=== PATIENT | female | born 1955 | race Caucasian/White ===

== ENCOUNTER 2020-01-01 19:46 | Emergency (ER) | payer BC ==
[2020-01-01] MEDS ORDERED: Diphtheria,Pertussis(Acell),Tetanus Vaccine 0.5 ML SDV IM ONE (20:12)
[2020-01-01] MEDS ORDERED: Lidocaine 1% with EPINEPHrine 1:100,000 20 ML MDV ONE (20:35)
[2020-01-01] MEDS ORDERED: Lidocaine 1% with EPINEPHrine 1:100,000 20 ML MDV INJECT ONE (20:35)
[2020-01-01 20:52] VITALS: BP 118/82; PULSE 97
--- NOTE | 2020-01-01 20:54 | EDM.PDOC ---
ED HPI GENERAL MEDICAL PROBLEM - General Chief Complaint: General Stated Complaint: LACERATION ARM Time Seen by Provider: 01/01/20 20:05 Source of Information: Reports: Patient History Limitations: Reports: No Limitations - History of Present Illness INITIAL COMMENTS - FREE TEXT/NARRATIVE: 64 YO WF PRESENTS TO ER WITH LACERATION TO LEFT FOREARM AFTER A TRIP AND FALL OUTSIDE EARLIER TODAY. PT REPORTS SHE CUT HER ARM ON SOME TREE DEBRIS. PT DENIES ANY OTHER INJURY. PT UNSURE IF SHE NEEDED STITCHES BUT WANTED AN UPDATED TETANUS. PT DENIES DECREASED SENSATION OR MOTOR DYSFUNCTION. PT MOVING FINGERS, WRIST AND ELBOW WITHOUT DISCOMFORT. Onset: Today Duration: Hour(s): (2) Location: Reports: Upper Extremity, Left Quality: Reports: Ache Severity: Mild Improves with: Reports: Rest Worsens with: Reports: None Context: Reports: Activity Associated Symptoms: Reports: No Other Symptoms - Related Data Allergies Allergy/AdvReac Type Severity Reaction Status Date / Time No Known Drug Allergies Allergy Cannot Verified 01/01/20 20:13 Remember Home Meds: Home Meds Citalopram [Citalopram HBr] 40 mg PO DAILY 01/01/20 [History] ED ROS GENERAL - Review of Systems Review Of Systems: See Below Constitutional: Reports: No Symptoms HEENT: Reports: No Symptoms Respiratory: Reports: No Symptoms Cardiovascular: Reports: No Symptoms GI/Abdominal: Reports: No Symptoms : Reports: No Symptoms Musculoskeletal: Reports: No Symptoms Skin: Reports: Wound (6CM LACERATION TO LEFT FOREARM) Neurological: Reports: No Symptoms Psychiatric: Reports: No Symptoms Hematologic/Lymphatic: Reports: No Symptoms Immunologic: Reports: No Symptoms ED EXAM, GENERAL - Physical Exam Exam: See Below Exam Limited By: No Limitations General Appearance: Alert, WD/WN, No Apparent Distress Head: Atraumatic, Normocephalic Neck: Normal Inspection, Supple, Non-Tender, Full Range of Motion Respiratory/Chest: No Respiratory Distress, Lungs Clear, Normal Breath Sounds, No Accessory Muscle Use, Chest Non-Tender Cardiovascular: Normal Peripheral Pulses, Regular Rate, Rhythm, No Edema, No Gallop, No JVD, No Murmur, No Rub GI/Abdominal: Normal Bowel Sounds, Soft, Non-Tender, No Organomegaly, No Distention, No Abnormal Bruit, No Mass Back Exam: Normal Inspection, Full Range of Motion, NT Extremities: Normal Range of Motion, No Pedal Edema, Normal Capillary Refill Neurological: Alert, Oriented, CN II-XII Intact, Normal Cognition, Normal Gait, No Motor/Sensory Deficits Psychiatric: Normal Affect, Normal Mood Skin Exam: Warm, Dry, Normal Color, No Rash, Wound/Incision (6CM LACERATION TO LEFT FOREARM) ED GENERAL MEDICAL PROCEDURES - Laceration/Wound Repair Left Anterior Distal Arm Lac/wound length in cm: 6 Appearance: Superficial Distal NVT: Neuro & Vascular Intact Anesthetic Type: Local Local Anesthesia - Lidocaine (Xylocaine): 1% with EPI Local Anesthetic Volume: 5cc Skin Prep: Chlorhexidine (Hibiciens), Saline Saline irrigation (cc's): 20 Exploration/Debridement/Repair: Wound Explored, In a Bloodless Field Closed with: Sutures Suture Size: 4-0 # of Sutures: 4 Drain Placement: No Sterile Dressing Applied: Provider Tetanus Status Addressed: Yes Complications: No Course - Orders/Labs/Meds Orders: Active Orders 24 hr Category Date Time Status Vaccines to be Administered [RC] PER UNIT ROUTINE Care 01/01/20 20:13 Active Meds: Medications Discontinued Medications Generic Name Dose Route Start Last Admin Trade Name Freq PRN Reason Stop Dose Admin Diphtheria/Tetanus/Acell Pertussis 0.5 ml 01/01/20 20:12 01/01/20 20:21 Adacel IM 01/01/20 20:13 0.5 ml .ONCE ONE Administration Lidocaine/Epinephrine Confirm 01/01/20 20:35 Xylocaine 1% With Epinephrine 1:100,000 Administered 01/01/20 20:36 Dose 20 ml .ROUTE .STK-MED ONE Departure - Departure Time of Disposition: 20:54 Disposition: Home, Self-Care 01 Condition: Good Clinical Impression: Laceration of forearm Qualifiers: Encounter type: initial encounter Laterality: left Qualified Code(s): S51.812A - Laceration without foreign body of left forearm, initial encounter - Discharge Information Instructions: Laceration Care, Adult Referrals: Codi Horton PA-C [Primary Care Provider] - Additional Instructions: 1. DISCHARGE HOME 2. WOUND CARE INSTRUCTIONS GIVEN 3. SUTURE REMOVAL 10-14 DAYS 4. FOLLOW UP WITH PCP FOR FURTHER EVALUATION AND TREATMENT NEEDED 5. RETURN TO ER FOR WORSENING SYMPTOMS - My Orders Last 24 Hours: My Active Orders 01/01/20 20:13 Vaccines to be Administered [RC] PER UNIT ROUTINE - Assessment/Plan Last 24 Hours: My Active Orders 01/01/20 20:13 Vaccines to be Administered [RC] PER UNIT ROUTINE Assessment:: 1. 6CM LACERATION TO LEFT FOREARM Plan: 1. DISCHARGE HOME 2. WOUND CARE INSTRUCTIONS GIVEN 3. SUTURE REMOVAL 10-14 DAYS 4. FOLLOW UP WITH PCP FOR FURTHER EVALUATION AND TREATMENT NEEDED 5. RETURN TO ER FOR WORSENING SYMPTOMS
== END 2020-01-01 21:01 | disposition home or self-care (01) ==
LOC: KA.ED 19:46
DX: S51.812A Laceration without foreign body of left forearm, initial encounter (principal); Z23 Encounter for immunization; Z79.899 Other long term (current) drug therapy; W01.0XXA Fall on same level from slipping, tripping and stumbling without subsequent striking against object, initial encounter
CPT/HCPCS: 12002; 90471; 90715; 99282-25; 99283

== ENCOUNTER 2020-02-11 07:18 | Emergency (ER) | payer BC ==
--- NOTE | 2020-02-11 07:33 | EDM.PDOC ---
ED HPI GENERAL MEDICAL PROBLEM - General Chief Complaint: Upper Extremity Injury/Pain Stated Complaint: broken wrist Time Seen by Provider: 02/11/20 07:32 - History of Present Illness INITIAL COMMENTS - FREE TEXT/NARRATIVE: Jennifer, 64-year-old female, at roughly 615 hours slipped on icy surface falling down onto her left outstretched upper extremity. Experienced immediate pain with mild deformity to the left wrist. Noted bleeding. Denies any other injury, did not strike her head. Past history fracture of the left wrist that did not require surgical intervention. Tetanus status was updated in the past weeks Onset: Today, Sudden Duration: Minutes: Location: Reports: Upper Extremity, Left Quality: Reports: Same as Previous Episode, Sharp Severity: Moderate Improves with: Reports: None Worsens with: Reports: Movement Context: Reports: Activity, Trauma Associated Symptoms: Reports: No Other Symptoms Left Wrist Pain Score (Numeric/FACES): 8 - Related Data Allergies Allergy/AdvReac Type Severity Reaction Status Date / Time No Known Drug Allergies Allergy Cannot Verified 02/11/20 07:39 Remember Home Meds: Home Meds Citalopram [Citalopram HBr] 40 mg PO DAILY 01/01/20 [History] Fenofibrate Nanocrystallized [Tricor] 145 mg PO DAILY 02/11/20 [History] Hydrocodone/Acetaminophen [Hydrocodone-Acetamin 5-325 mg] 1 each PO Q4HR PRN 3 Days #10 tablet 02/11/20 [Rx] Past Medical History HEENT History: Reports: Impaired Vision Cardiovascular History: Reports: High Cholesterol 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: Musculoskeletal History: Reports: Other (See Below) - Past Surgical History Oncologic Surgical History: Reports: Mastectomy Other Oncologic Surgeries/Procedures: left mastectomy Social & Family History - Family History Family Medical History: Noncontributory - Caffeine Use Caffeine Use: Reports: Coffee Review of Systems - Review of Systems Review Of Systems: See Below Constitutional: Reports: No Symptoms Eyes: Reports: No Symptoms Ears: Reports: No Symptoms Nose: Reports: No Symptoms Mouth/Throat: Reports: No Symptoms Respiratory: Reports: No Symptoms Cardiovascular: Reports: No Symptoms GI/Abdominal: Reports: No Symptoms Genitourinary: Reports: No Symptoms Musculoskeletal: Reports: Arm Pain, Hand Pain Skin: Reports: Wound Neurological: Reports: No Symptoms Psychiatric: Reports: No Symptoms ED EXAM, GENERAL - Physical Exam Exam: See Below Free Text/Narrative:: Alert, oriented, in moderate distress. She is self splinting left wrist. HEENT is negative discharge or deformity. Glasses in place with no noted damage PERRLA no icterus no injection Neck is soft supple no lymphadenopathy. No limitation to motion. Thorax is clear no wheezes no crackles. Cardiac is regular S1-S2. Focused examination to the left upper extremity shows deformity with minimal swelling at the wrist. There is a open, puncture appearance to the medial aspect of the wrist making me question an open fracture. I do not appreciate any abrasion to the palm. CMS is intact limited motion secondary of discomfort as well as malalignment of the radius. Capillary refill 2 seconds. In review of the x-ray the open area does not completely correlate with fracture segments. General Appearance: Alert, WD/WN, Moderate Distress ED TRAUMA EXTREMITY PROCEDURES - Splinting Left Upper Extremity Pre-Procedure NV Status: Normal Post-Procedure NV Status: Normal Splint Material: Fiberglass Splint Design: Gutter, Posterior Applied & Form Fitted By: Provider Provider Post-Splint Application NV Check: NV Status Normal, Good Position Complications: No Course - Vital Signs Last Recorded V/S: Last Vital Signs Temp 35.5 C L 02/11/20 07:25 Pulse 76 02/11/20 08:27 Resp 20 02/11/20 08:27 BP 145/92 H 02/11/20 08:27 Pulse Ox 100 02/11/20 08:27 - Orders/Labs/Meds Meds: Medications Discontinued Medications Generic Name Dose Route Start Last Admin Trade Name Keshav PRN Reason Stop Dose Admin Cefazolin Sodium 1 gm 02/11/20 09:00 02/11/20 09:12 Ancef IM 02/11/20 09:01 1 gm ONETIME ONE Administration Neomycin/Polymyxin/Bacitracin Confirm 02/11/20 08:08 02/11/20 08:21 Triple Antibiotic Oint Administered 02/11/20 08:09 Not Given Dose 1 each .ROUTE .STK-MED ONE Neomycin/Polymyxin/Bacitracin 0.9 gm 02/11/20 08:16 02/11/20 08:23 Triple Antibiotic Oint TOP 02/11/20 08:17 1 applic ONETIME ONE Administration - Radiology Interpretation Free Text/Narrative:: 2 view of the wrist shows a comminuted displaced impacted left radial fracture. Over read pending - Re-Assessments/Exams Free Text/Narrative Re-Assessment/Exam: 02/11/20 08:46 Orthopedic consult attempted at 0800 hrs. with images pushed to [facility] in [place]. Departure - Departure Time of Disposition: 09:17 Disposition: Home, Self-Care 01 Condition: Good Clinical Impression: Radius distal fracture, Fall - Discharge Information *PRESCRIPTION DRUG MONITORING PROGRAM REVIEWED*: Yes *COPY OF PRESCRIPTION DRUG MONITORING REPORT IN PATIENT CHRISTINA: Yes Prescriptions: Hydrocodone/Acetaminophen [Hydrocodone-Acetamin 5-325 mg] 1 each PO Q4HR PRN 3 Days #10 tablet PRN Reason: Pain (Moderate 4-6) Instructions: Cast or Splint Care, Adult, [id number] Referrals: Codi Horton PA-C [Primary Care Provider] - Forms: ED Department Discharge Additional Instructions: Will be discharged home today with a prescription for hydrocodone to be picked up at [facility]. You may take 1 every 4 hours or 2 every 6 as needed for your pain. No driving or operating equipment when taking this medication. Dr. Diamond, orthopedic surgeon office will be contacting you this afternoon to arrange surgical scheduling for tomorrow. Continue your home medicines today as directed and follow surgical scheduling advice for medication intake tomorrow. Keep the splint extremity in the sling as much as possible. Elevate and ice to help control swelling. Contact your clinic or return to the emergency department if intervention is needed prior to the surgical scheduling. 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 - Problem List & Annotations (1) Wrist pain, left SNOMED Code(s): 86373349 Code(s): M25.532 - PAIN IN LEFT WRIST Status: Acute Current Visit: Yes (2) Fall SNOMED Code(s): 4181694, 211027647 Code(s): W19.XXXA - UNSPECIFIED FALL, INITIAL ENCOUNTER Status: Acute Current Visit: Yes Qualifiers: Encounter type: initial encounter Qualified Code(s): W19.XXXA - Unspecified fall, initial encounter (3) Radius distal fracture SNOMED Code(s): 604649094 Code(s): S52.509A - UNSP FRACTURE OF THE LOWER END OF UNSP RADIUS, INIT Status: Acute Current Visit: Yes Qualifiers: Encounter type: initial encounter Open fracture type: open type I or II Laterality: left - Problem List Review Problem List Initiated/Reviewed/Updated: Yes - Assessment/Plan Plan: Will be discharged home today with a prescription for hydrocodone to be picked up at [facility]. You may take 1 every 4 hours or 2 every 6 as needed for your pain. No driving or operating equipment when taking this medication. Dr. Diamond, orthopedic surgeon office will be contacting you this afternoon to arrange surgical scheduling for tomorrow. Continue your home medicines today as directed and follow surgical scheduling advice for medication intake tomorrow. Keep the splint extremity in the sling as much as possible. Elevate and ice to help control swelling. Contact your clinic or return to the emergency department if intervention is needed prior to the surgical scheduling.
--- NOTE | 2020-02-11 08:20 | CR ---
[id number] RAD/RAD Wrist Left 2V EXAM: 2 VIEWS RIGHT WRIST. INDICATION: FALL, PAIN WITH DEFORMITY. COMPARISON: None. DISCUSSION: Acute impacted and displaced fracture involving the distal right radius. Additionally there is mild angulation. The fracture extends into the radiocarpal joint. No other fractures are identified. There is associated soft tissue edema. IMPRESSION: 1. Acute fracture involving the distal right radius as above. Orville Wei DO 02/11/20 0819 Thank you for allowing us to participate in the care of your patient.
[2020-02-11] MEDS: Bacitracin/Neomycin/Polymyxin B Oint 0.9 GM U/D Packet ONE (08:21)
[2020-02-11] MEDS: Bacitracin/Neomycin/Polymyxin B Oint 28.4 GM Tube TOP ONE (08:23)
[2020-02-11 08:28] VITALS: BP 145/92; PULSE 76
[2020-02-11] MEDS: ceFAZolin 1 GM Vial IM ONE (09:12)
== END 2020-02-11 09:20 | disposition home or self-care (01) ==
LOC: KA.ED 07:18
DX: S52.502A Unspecified fracture of the lower end of left radius, initial encounter for closed fracture (principal); E78.00 Pure hypercholesterolemia, unspecified; Z79.899 Other long term (current) drug therapy; W18.30XA Fall on same level, unspecified, initial encounter
CPT/HCPCS: 29125; 73100-LT; 96372; 99283; 99283-25; J0690